=== PATIENT | female | born 1970 | race Caucasian/White ===

== ENCOUNTER 2016-11-12 13:27 | Day surgery (SDC) | payer BC, OTHER ==
[2016-11-12] MEDS ORDERED: BACTRIM DS TAB1 EAC2 PO (14:13)
[2016-11-12] MEDS ORDERED: IBUPROFEN800 M1 PO (14:13)
== END 2016-11-12 19:30 ==
LOC: SRG 13:27 → SHSA 13:28 → ORE 17:00 → SHSA 18:25
PROC: 0R9W0ZZ Drainage of Right Finger Phalangeal Joint, Open Approach (ICD-10-PCS; principal; 2016-11-12)
DX: L03.011 Cellulitis of right finger (principal); S61.230A Puncture wound without foreign body of right index finger without damage to nail, initial encounter; Z79.1 Long term (current) use of non-steroidal anti-inflammatories (NSAID); Z79.2 Long term (current) use of antibiotics; Z90.710 Acquired absence of both cervix and uterus; Z98.890 Other specified postprocedural states
CPT/HCPCS: J0690; J2250; J3010